=== PATIENT | male | born 1990 | race Caucasian/White ===

== ENCOUNTER 2020-08-11 07:42 | Emergency (ER) | payer OTHER ==
[~2020-08-11] VITALS: Ht 177.8 cm; Wt 85.8 kg
[2020-08-11] MEDS ORDERED: ondansetron 4mg rapidly disintigrating tab PO ONE (09:00)
[2020-08-11] MEDS ORDERED: ketorolac trometh inj. 60 MG/2 ML VIAL IM ONE (09:00)
[2020-08-11] MEDS ORDERED: oxymetazoline 15 ML nasal spray NS ONE (09:00)
[2020-08-11] MEDS ORDERED: pseudoephedrine 30mg tablet PO ONE (09:00)
[2020-08-11] MEDS ORDERED: acetaminophen 325mg tablet PO ONE (09:00)
[2020-08-11 09:36] VITALS: BP 138/92
== END 2020-08-11 09:40 | disposition home or self-care (01) ==
LOC: ER 07:43
DX: B34.9 Viral infection, unspecified (principal)
CPT/HCPCS: 87502; 87503; 96372; 99284; J1885

== ENCOUNTER 2021-04-17 11:17 | Emergency (ER) | payer OTHER ==
[~2021-04-17] VITALS: Ht 175.3 cm; Wt 84.1 kg
[~2021-04-17 11:17] MED LIST: HYDR28CR14 TOP; LORA10TA65 PO; METH4TAB3 PO
[2021-04-17 11:47] VITALS: BP 127/92
== END 2021-04-17 13:59 | disposition home or self-care (01) ==
LOC: ER 11:18
DX: R51.9 Headache, unspecified (principal); Z20.822 Contact with and (suspected) exposure to COVID-19; R06.02 Shortness of breath; Z79.899 Other long term (current) drug therapy
CPT/HCPCS: 70450; 71045; 87635; 99285; C9803; 99284

== ENCOUNTER 2022-02-14 14:05 | Emergency (ER) | payer OTHER ==
[~2022-02-14] VITALS: Ht 177.8 cm; Wt 84.0 kg
[2022-02-14 14:11] VITALS: BP 111/79
== END 2022-02-14 19:37 | disposition home or self-care (01) ==
LOC: ER 14:06
DX: S39.012A Strain of muscle, fascia and tendon of lower back, initial encounter (principal); X50.0XXA Overexertion from strenuous movement or load, initial encounter; Y93.89 Activity, other specified; Y92.89 Other specified places as the place of occurrence of the external cause; Y99.8 Other external cause status
CPT/HCPCS: 99282

== ENCOUNTER 2022-03-25 07:35 | Emergency (ER) | payer OTHER ==
[~2022-03-25] VITALS: Ht 175.3 cm; Wt 85.0 kg
[2022-03-25 08:18] VITALS: BP 130/92
== END 2022-03-25 09:05 | disposition home or self-care (01) ==
LOC: ER 07:35
DX: S33.5XXA Sprain of ligaments of lumbar spine, initial encounter (principal); Z79.899 Other long term (current) drug therapy; X58.XXXA Exposure to other specified factors, initial encounter; Y93.89 Activity, other specified; Y92.89 Other specified places as the place of occurrence of the external cause; Y99.8 Other external cause status
CPT/HCPCS: 99282